=== PATIENT | male | born 1965 | race Caucasian/White ===

== ENCOUNTER → 2021-01-14 15:22 | Outpatient (BNVA) | payer BC, SELFPAY | PROVIDERS: Visit Provider Family Medicine | DX: I10 Essential (primary) hypertension (principal); E78.5 Hyperlipidemia, unspecified; N40.1 Benign prostatic hyperplasia with lower urinary tract symptoms; R39.11 Hesitancy of micturition; K50.913 Crohn's disease, unspecified, with fistula; E78.2 Mixed hyperlipidemia; K21.9 Gastro-esophageal reflux disease without esophagitis; G43.709 Chronic migraine without aura, not intractable, without status migrainosus | CPT/HCPCS: 80053; 80061; 84153; 85025 ==

== ENCOUNTER → 2021-01-20 08:52 | Day surgery (SDC) | payer BC, SELFPAY ==
[2021-01-20] MEDS: diphenhydrAMINE 25 mg Capsule PO (09:58)
[2021-01-20] MEDS: acetaminophen 325 mg Tablet 650 MG PO (09:58)
[2021-01-20 10:35] VITALS: BP 145/98; PULSE 87; RESP 18; TEMP 37; O2SAT 97; BMI 28.2
== END ==
PROVIDERS: PCP Family Medicine; Visit Provider Internal Medicine
DX: K50.913 Crohn's disease, unspecified, with fistula (principal)
CPT/HCPCS: 96365; J1745; J7050

== ENCOUNTER → 2021-02-10 09:59 | Outpatient (BNVA) | payer BC, SELFPAY | PROVIDERS: PCP Family Medicine; Visit Provider Nurse Practitioner Family | DX: R53.83 Other fatigue (principal) | CPT/HCPCS: 80053; 84443; 85025; 85651; 86140 ==

== ENCOUNTER → 2021-02-17 10:06 | Day surgery (SDC) | payer BC, SELFPAY ==
[2021-02-17 10:25] VITALS: BP 159/89; PULSE 83; RESP 16; TEMP 36.8; O2SAT 95
[2021-02-17] MEDS: diphenhydrAMINE 25 mg Capsule PO (10:32)
[2021-02-17] MEDS: acetaminophen 325 mg Tablet 650 MG PO (10:32)
== END ==
PROVIDERS: PCP Family Medicine; Visit Provider Internal Medicine
DX: K50.913 Crohn's disease, unspecified, with fistula (principal)
CPT/HCPCS: 81003; 96365; 96366; J1745; J7050

== ENCOUNTER → 2021-03-17 06:46 | Day surgery (SDC) | payer BC, SELFPAY ==
[2021-03-17] MEDS: diphenhydrAMINE 25 mg Capsule PO (07:06)
[2021-03-17] MEDS: acetaminophen 325 mg Tablet 650 MG PO (07:06)
[2021-03-17 07:09] VITALS: BP 122/71; PULSE 81; RESP 18; TEMP 36.3; O2SAT 95
== END ==
PROVIDERS: PCP Family Medicine; Visit Provider Internal Medicine
DX: K50.913 Crohn's disease, unspecified, with fistula (principal)
CPT/HCPCS: 96365; 96366; J1745; J7050

== ENCOUNTER → 2021-04-14 09:58 | Day surgery (SDC) | payer BC, SELFPAY ==
[2021-04-14] MEDS: acetaminophen 325 mg Tablet 650 MG PO (10:28)
[2021-04-14] MEDS: diphenhydrAMINE 25 mg Capsule PO (10:29)
[2021-04-14 10:38] VITALS: BP 163/112; PULSE 108; RESP 18; TEMP 36.4; O2SAT 95
== END ==
LOC: GILAB 10:01
PROVIDERS: PCP Family Medicine; Visit Provider Internal Medicine
DX: K50.913 Crohn's disease, unspecified, with fistula (principal)
CPT/HCPCS: 96365; 96366; J1745; J7050

== ENCOUNTER → 2021-05-12 09:59 | Day surgery (SDC) | payer BC, SELFPAY ==
[2021-05-12] MEDS: diphenhydrAMINE 25 mg Capsule PO (10:25)
[2021-05-12] MEDS: acetaminophen 325 mg Tablet 650 MG PO (10:25)
[2021-05-12 10:33] VITALS: BP 139/90; PULSE 68; RESP 18; TEMP 36.2; O2SAT 96; BMI 28.2
== END ==
PROVIDERS: PCP Family Medicine; Visit Provider Internal Medicine
DX: K50.913 Crohn's disease, unspecified, with fistula (principal)
CPT/HCPCS: 96365; 96366; J1745; J7050

== ENCOUNTER → 2021-07-07 10:01 | Day surgery (SDC) | payer BC, SELFPAY ==
[2021-07-07] MEDS: acetaminophen 325 mg Tablet 650 MG PO (10:16)
[2021-07-07] MEDS: diphenhydrAMINE 25 mg Capsule PO (10:16)
[2021-07-07 10:35] VITALS: BP 114/82; PULSE 77; RESP 18; TEMP 36.3; O2SAT 96
== END ==
PROVIDERS: PCP Family Medicine; Visit Provider Internal Medicine
DX: K50.90 Crohn's disease, unspecified, without complications (principal)
CPT/HCPCS: 96365; 96366; J1745; J7050

== ENCOUNTER → 2021-08-04 10:14 | Day surgery (SDC) | payer BC, SELFPAY ==
[2021-08-04 10:25] VITALS: BP 158/92; PULSE 69; RESP 18; TEMP 36.2; O2SAT 97; BMI 26.9
[2021-08-04 11:00] LABS: Hemoglobin 13.1 g/dL (11.7-16.6); Mean Corpuscular HGB Conc 32.8 g/dL (30.0-36.0); Mean Corpuscular Volume 94.6 fl (80-94); Mean Platelet Volume 10.2 fL (7.4-10.4); Platelet Count 276 10^3/cmm (130-400); Red Blood Count 4.23 10^6/uL (4.1-5.3); Red Cell Distribution Width 12.4 % (12.1-15.1); White Blood Count 4.7 10^3/uL (4.0-10.0)
[2021-08-04] MEDS: diphenhydrAMINE 25 mg Capsule PO (11:00)
[2021-08-04] MEDS: acetaminophen 325 mg Tablet 650 MG PO (11:00)
[2021-08-04 11:11] LABS: Alanine Aminotransferase 33 U/L (0-41); Albumin Level 4.6 g/dL (3.5-5.2); Alkaline Phosphatase 56 IU/L (40-130); Anion Gap 16.5 (5-19); Aspartate Amino Transferase 25 U/L (0-40); Blood Urea Nitrogen 20 mg/dL (6-20); Calcium 9.1 mg/dL (8.5-10.5); Carbon Dioxide 23 mmol/L (22-29); Chloride 102 mmol/L (98-107); Creatinine Clr Calc Pharmacy 127.4898; Glucose 94 mg/dL (65-115); Magnesium 1.8 mg/dL (1.7-2.3); Osmolality Calculated 286 mOsm/kg (285-295); Potassium 4.5 mmol/L (3.5-5.1); Sodium 137 mmol/L (136-145); Total Bilirubin 0.4 mg/dL (0.15-1.2); Total Protein 7.6 g/dL (6.6-8.7)
[2021-08-04 12:08] LABS: Absolute Neutrophil 1.9 10^3/cmm (1.4-6.5); Absolute Segmented Neutrophil 1.9 10/cmm (1.6-7.1); Eosinophils 0 %; Lymphocytes 47 %; Lymphocytes Absolute 2.6 10^3/cmm (1.2-3.4); Monocytes Absolute 0.2 10^3/cmm (0.1-0.6); Platelet Estimate Normal (Normal); Segmented Neutrophils 40 %; Total Cells Counted 100 (0-100)
== END ==
PROVIDERS: PCP Family Medicine; Visit Provider Internal Medicine
DX: M72.2 Plantar fascial fibromatosis (principal); K50.913 Crohn's disease, unspecified, with fistula
CPT/HCPCS: 80053; 83735; 85007; 85025; 96365; 96366; J1745; J2704; J7050

== ENCOUNTER → 2021-09-08 15:21 | Outpatient (BNVA) | payer BC, SELFPAY | PROVIDERS: PCP Family Medicine; Visit Provider Internal Medicine | DX: K50.913 Crohn's disease, unspecified, with fistula (principal); I10 Essential (primary) hypertension | CPT/HCPCS: 86705; 86706; 86709; 86803; 87340 ==

== ENCOUNTER → 2021-09-29 10:00 | Day surgery (SDC) | payer BC, SELFPAY ==
[2021-09-29 10:11] VITALS: BP 150/99; PULSE 98; RESP 18; TEMP 36.4; O2SAT 97
[2021-09-29] MEDS: diphenhydrAMINE 25 mg Capsule PO (10:27)
[2021-09-29] MEDS: acetaminophen 325 mg Tablet 650 MG PO (10:27)
== END ==
PROVIDERS: PCP Family Medicine; Visit Provider Internal Medicine
DX: K50.913 Crohn's disease, unspecified, with fistula (principal)
CPT/HCPCS: 96365; 96366; J1745; J7050

== ENCOUNTER → 2021-12-09 10:25 | Outpatient (BNVA) | payer BC, SELFPAY | PROVIDERS: PCP Family Medicine; Visit Provider Podiatrist Foot & Ankle Surgery | DX: M21.612 Bunion of left foot (principal); M21.611 Bunion of right foot; M79.671 Pain in right foot; M79.672 Pain in left foot | CPT/HCPCS: 73630 ==

== ENCOUNTER → 2022-04-27 11:05 | Outpatient (BNVA) | payer BC, SELFPAY | PROVIDERS: PCP Family Medicine; Visit Provider Family Medicine | DX: N40.0 Benign prostatic hyperplasia without lower urinary tract symptoms (principal); G43.709 Chronic migraine without aura, not intractable, without status migrainosus; K21.9 Gastro-esophageal reflux disease without esophagitis; E78.5 Hyperlipidemia, unspecified; K50.90 Crohn's disease, unspecified, without complications; I10 Essential (primary) hypertension; K50.913 Crohn's disease, unspecified, with fistula; J44.9 Chronic obstructive pulmonary disease, unspecified; E78.2 Mixed hyperlipidemia; B88.0 Other acariasis; N40.1 Benign prostatic hyperplasia with lower urinary tract symptoms | CPT/HCPCS: 80053; 80061; 85025 ==

== ENCOUNTER → 2022-06-23 12:30 | Day surgery (SDC) | payer BC, SELFPAY ==
[2021-06-09 10:08] VITALS: BP 138/82; PULSE 79; RESP 18; TEMP 36.4; O2SAT 96; BMI 28.2
[2021-06-09] MEDS: diphenhydrAMINE 25 mg Capsule PO (10:21)
[2021-06-09] MEDS: acetaminophen 325 mg Tablet 650 MG PO (10:21)
== END | disposition home or self-care (01) ==
PROVIDERS: PCP Family Medicine; Visit Provider Internal Medicine
DX: K50.913 Crohn's disease, unspecified, with fistula (principal)
CPT/HCPCS: 96365; 96366; J1745; J7050